=== PATIENT | male | born 1960 | race Caucasian/White ===

== ENCOUNTER 2017-04-11 09:43 | Day surgery (SDC) | payer BC ==
[~2017-04-11 09:43] MED LIST: Lactated Ringers 1,000 ML IV SCH; Sodium Chloride 0.9% 10 ML Syringe FLUSH PRN
[2017-04-11] MEDS ORDERED: Midazolam 1 MG/ML 2 ML SDV ONE ×2 (11:10→11:11)
[2017-04-11] MEDS ORDERED: fentaNYL 100 MCG/2 ML SDV ONE ×2 (11:10→11:11)
[2017-04-11] MEDS ORDERED: Propofol 200 MG/20 ML SDV ONE ×2 (11:10→11:11)
[2017-04-11] MEDS ORDERED: Lidocaine 2% 5 ML SDV ONE (11:11)
--- NOTE | 2017-04-11 11:13 | PCM.PN ---
- General Info Date of Service: 04/11/17 - Review of Systems Systems Review Comment:: 56-year-old male referred by Mily Parks for EGD and colonoscopy. He has been having some symptoms of dysphasia especially when eating foods such as steak. He also is here for colonoscopy for colon cancer screening screening. The patient is medically stable to proceed today I reviewed his recent history and physical and there is no significant change on today's evaluation. I discussed the proposed upper and lower endoscopies with the patient. Risks such as but not limited to bleeding and GI injury reviewed. He appears to understand and agrees to proceed. - Patient Data Vitals - Most Recent: Last Vital Signs Temp 97.7 F 04/11/17 10:06 Pulse 84 04/11/17 10:06 Resp 16 04/11/17 10:06 BP 111/74 04/11/17 10:06 Pulse Ox 99 04/11/17 10:06 Weight - Most Recent: 127.459 kg Med Orders - Current: Current Medications Lactated Ringer's (Ringers, Lactated) 1,000 mls @ 125 mls/hr IV ASDIRECTED IRIS Last Admin: 04/11/17 10:32 Dose: 125 mls/hr Sodium Chloride (Saline Flush) 10 ml FLUSH ASDIRECTED PRN PRN Reason: Keep Vein Open - Problem List Review Problem List Initiated/Reviewed/Updated: Yes - Assessment Assessment:: Dysphasia Colon cancer screening - Plan Plan:: EGD and colonoscopy
--- NOTE | 2017-04-11 12:09 | PCM.OPNOTE ---
- General Post-Op/Procedure Note Date of Surgery/Procedure: 04/11/17 Operative Procedure(s): EGD with Biopsy and Colonoscopy Findings: Moderate Esophagitis at GE Jct probably from reflux Normal Colon Pre Op Diagnosis: Dysphagia. Colon Cancer Screening Post-Op Diagnosis: Reflux Esophagitis. Normal Colon Anesthesia Technique: MAC Primary Surgeon: Milo Fraser Pathology: Biopsies of Gastric Antrum and GE Jct. Output, Urine Amount: 0 EBL in mLs: 3 Complications: None Condition: Good Free Text/Narrative:: Intake & Output 04/10/17 04/11/17 04/11/17 22:59 06:59 14:59 Intake Total 900 Balance 900
[2017-04-11 15:43] VITALS: BP 101/85
--- NOTE | 2017-04-12 07:35 | OR ---
Date of Procedure: 04/11/2017 PREOPERATIVE DIAGNOSES: Dysphagia and colon cancer screening. POSTOPERATIVE DIAGNOSES: Reflux esophagitis and normal colon. OPERATIONS PERFORMED: Esophagogastroduodenoscopy with biopsy and colonoscopy. INDICATIONS FOR SURGERY: This 56-year-old male is referred for upper endoscopy because of symptoms of dysphagia and occasional GERD symptoms. It has also been more than 10 years since his last colonoscopy and colon cancer screening are planned. FINDINGS: On upper endoscopy, the patient does have a moderate degree of inflammation at the GE junction. There is some friability of the mucosa along with hyperemia, and this is concentrated at the GE junction with slight extension for about 1 cm proximally. I do not see evidence of stricturing or any other intrinsic or extrinsic lesions in the esophagus. The stomach and duodenum appeared normal. The patient's colon appears normal. PROCEDURE IN DETAIL: The patient is taken to the operating room. He was given intravenous sedation. With him in the left lateral decubitus position, the esophagus was intubated with Olympus gastroscope. This was carefully advanced through the esophagus, stomach, and duodenum where examination to the third portion was performed. After carefully examining the duodenum, the scope was withdrawn back into the stomach where full examination including retroflexed examination of the fundus was performed. The biopsies of the antrum were taken to rule out H. pylori. The GE junction was then carefully examined, and biopsies here also taken because of the visible inflammation. The esophagus was then examined as the scope was withdrawn. There was no definite stenosis seen during the exam, so balloon dilation was not performed today. Attention was then turned to colonoscopy. Digital rectal exam was performed showing no rectal masses. The Olympus colonoscope was inserted into the rectum. Retroflexed examination of the rectal canal was performed. The scope was then carefully advanced under direct visualization through the entire length of the colon until the cecum is reached. Cecal acquisition is confirmed by noting normal internal cecal anatomy including the appendiceal orifice and ileocecal valve. The light is also noted to transilluminate the abdominal wall, right lower quadrant. The ileocecal valve was cannulated, and the terminal ilium was also examined and appeared normal. The scope was then slowly withdrawn sequentially re-examining the colonic segments until the entire colon and rectum have been fully examined. Once this exam had been completed and with no evidence of any complication, the scope was removed, and the patient was taken from the operating room in satisfactory condition. ESTIMATED BLOOD LOSS: 3 mL. COMPLICATIONS: None. PROGNOSIS: Good. LISS Fraser MD /[id number]
== END 2017-04-11 13:15 | disposition home or self-care (01) ==
LOC: LL.SDS 09:43
PROVIDERS: ATTEND Surgery
DX: Z12.11 Encounter for screening for malignant neoplasm of colon (principal); K29.70 Gastritis, unspecified, without bleeding; K20.9 Esophagitis, unspecified; Z88.0 Allergy status to penicillin; Z79.82 Long term (current) use of aspirin; Z79.899 Other long term (current) drug therapy
CPT/HCPCS: 43239; 45378; J2250; J2704; J3010; J7120